=== PATIENT | female | born 1985 | race Caucasian/White ===

== ENCOUNTER 2017-07-06 10:55 | Inpatient (IN) | payer OTHER ==
[~2017-07-06] VITALS: Ht 165.1 cm; Wt 91.4 kg
[~2017-07-06 10:55] MED LIST: OXYC-302 PO
[2017-07-07] MEDS ORDERED: OXYTOCIN 30U/ 0.9% NaCL 500ML 500 ML IV ONE (19:25)
[2017-07-07] MEDS ORDERED: D5%-LACTATED RINGERS 1,000 ML IV SCH (19:25)
[2017-07-07] MEDS ORDERED: LACTATED RINGERS 1,000 ML IV SCH (19:25)
[2017-07-07] MEDS ORDERED: FENTANYL PF 100 MCG/2ML IVPush PRN (19:30)
[2017-07-07] MEDS ORDERED: FENTANYL PF 100 MCG/2ML IV PRN (19:30)
[2017-07-07 19:40] VITALS: BP 121/80
[2017-07-07] MEDS ORDERED: LIDOCAINE 1%, 20ML ONE (19:53)
[2017-07-07] MEDS ORDERED: OXYTOCIN 30U/ 0.9% NaCL 500ML 500 ML ONE (19:53)
[2017-07-07] MEDS ORDERED: MISOPROSTOL 200 MCG TABLET ONE (19:53)
[2017-07-07] MEDS ORDERED: MISOPROSTOL 25 MCG TABLET ONE (19:53)
[2017-07-07] MEDS ORDERED: NEWBORN KIT ONE (19:54)
[2017-07-07] MEDS ORDERED: PLEASE ENTER HEIGHT AND WEIGHT MC SCH ×2 (20:00→20:30)
[2017-07-07] MEDS ORDERED: MISOPROSTOL 25 MCG TABLET VG PRN (20:30)
[2017-07-07 20:33] LABS: HEMATOCRIT 40.8 % (34.6-47.8); HEMOGLOBIN 13.7 g/dL (11.7-16.4)
[2017-07-08] MEDS ORDERED: FENTANYL PF 100 MCG/2ML ONE ×2 (05:08→06:15)
[2017-07-08] MEDS ORDERED: ONDANSETRON 2MG/ML, 2ML ONE (05:08)
[2017-07-08] MEDS ORDERED: BUPIVACAINE 0.25% ONE (06:15)
[2017-07-08] MEDS ORDERED: FENTANYL/BUPIV./NS/PF 250 ML EPIDCONT ONE (06:15)
[2017-07-08] MEDS ORDERED: LIDOCAINE/PF 1.5%-EPI 1:200K, 30ML ONE (06:18)
[2017-07-08] MEDS ORDERED: FENTANYL/BUPIV./NS/PF 250 ML EPIDCONT SCH (06:49)
[2017-07-08] MEDS: LACTATED RINGERS 1,000 ML IV SCH ×3 (06:49→22:49)
[2017-07-08] MEDS ORDERED: ONDANSETRON 2MG/ML, 2ML IVPush PRN (07:00)
[2017-07-08] MEDS ORDERED: LACTATED RINGERS 1,000 ML IVBOLUS PRN (07:00)
[2017-07-08] MEDS ORDERED: EPHEDRINE 50 MG/ML, 1ML IVPush PRN (07:00)
[2017-07-08] MEDS: OXYTOCIN 30U/ 0.9% NaCL 500ML 500 ML IV SCH ×2 (09:39→19:39)
[2017-07-08] MEDS ORDERED: OXYTOCIN 30U/ 0.9% NaCL 500ML 500 ML ONE (09:42)
[2017-07-08] MEDS ORDERED: ACETAMINOPHEN 325 MG TABLET PO PRN (10:00)
[2017-07-08] MEDS ORDERED: CARBOPROST TROMETHAMINE 250 MCG/ML, 1ML IM PRN (10:00)
[2017-07-08] MEDS ORDERED: DIPH,PERTUSS(ACELL),TET VAC/PF NC IM-VACC PRN (10:00)
[2017-07-08] MEDS ORDERED: METHYLERGONOVINE 0.2 MG/ML IM PRN (10:00)
[2017-07-08] MEDS ORDERED: MISOPROSTOL 200 MCG TABLET PR PRN (10:00)
[2017-07-08] MEDS ORDERED: OXYcodone/APAP 5/325MG TABLET PO PRN (10:00)
[2017-07-08] MEDS ORDERED: MEASLES,MUMPS&RUBELLA VACC/PF 0.5 ML SQ PRN (10:00)
[2017-07-08 11:30] VITALS: BP 107/62
[2017-07-08] MEDS: IBUPROFEN 600 MG TABLET PO PRN ×2 (14:51→21:11)
[2017-07-08 15:39] VITALS: BP 109/65
[2017-07-08 17:33] LABS: HEMATOCRIT 40.2 % (34.6-47.8); HEMOGLOBIN 13.5 g/dL (11.7-16.4); WHITE BLOOD COUNT 14.2 x10^3/uL (3.4-10)
[2017-07-08 17:54] LABS: LARGE PLATELETS 1+
[2017-07-08 19:30] VITALS: BP 117/75
[2017-07-08] MEDS: DOCUSATE 100 MG CAPSULE PO PRN (21:11)
[2017-07-09] MEDS: OXYcodone/APAP 5/325MG TABLET PO PRN ×3 (00:26→14:20)
[2017-07-09 00:30] VITALS: BP 114/71
[2017-07-09 04:00] VITALS: BP 101/57
[2017-07-09] MEDS: OXYTOCIN 30U/ 0.9% NaCL 500ML 500 ML IV SCH (05:39)
[2017-07-09] MEDS: LACTATED RINGERS 1,000 ML IV SCH (06:49)
[2017-07-09] MEDS: IBUPROFEN 600 MG TABLET PO PRN ×2 (07:15→14:24)
[2017-07-09] MEDS: DOCUSATE 100 MG CAPSULE PO PRN (07:15)
[2017-07-09 08:00] VITALS: BP 100/58
[2017-07-09] MEDS ORDERED: PRENATAL VIT/IRON/FA 1 EACH TABLET PO SCH (09:00)
[2017-07-09] MEDS ORDERED: OXYC-302 PO (13:10)
[2017-07-09] MEDS ORDERED: IBUP-1222 PO (13:11)
== END 2017-07-09 14:55 | disposition home or self-care (01) | DRG 775 ==
LOC: LDIP 07-07 19:24 → 2NW 07-08 11:24
PROVIDERS: ADMIT Obstetrics & Gynecology Maternal & Fetal Medicine; ATTEND Obstetrics & Gynecology Maternal & Fetal Medicine
PROC: 10E0XZZ Delivery of Products of Conception, External Approach (ICD-10-PCS; principal; 2017-07-08)
PROC: 3E0P7VZ Introduction of Hormone into Female Reproductive, Via Natural or Artificial Opening (ICD-10-PCS; 2017-07-08)
PROC: 3E0S3BZ Introduction of Anesthetic Agent into Epidural Space, Percutaneous Approach (ICD-10-PCS; 2017-07-08)
PROC: 00HU33Z Insertion of Infusion Device into Spinal Canal, Percutaneous Approach (ICD-10-PCS; 2017-07-08)
DX: O80 Encounter for full-term uncomplicated delivery (principal); Z37.0 Single live birth; Z3A.40 40 weeks gestation of pregnancy
CPT/HCPCS: 36415; 85025; 86850; 86900; J3490; J2590; J7120

== ENCOUNTER 2020-03-20 10:35 | Inpatient (IN) | payer OTHER ==
[~2020-03-20] VITALS: Ht 165.1 cm; Wt 86.0 kg
[~2020-03-20 10:35] MED LIST changes: +IBUP-1222 PO
[2020-03-27] MEDS ORDERED: D5%-LACTATED RINGERS 1,000 ML IV SCH (21:47)
[2020-03-27] MEDS ORDERED: OXYTOCIN 30U/ 0.9% NaCL 500ML 500 ML IV ONE (21:47)
[2020-03-27] MEDS ORDERED: FENTANYL/BUPIV./NS/PF 250 ML EPIDCONT SCH (21:49)
[2020-03-27] MEDS ORDERED: OXYTOCIN 30U/ 0.9% NaCL 500ML 500 ML ONE (21:52)
[2020-03-27] MEDS ORDERED: MISOPROSTOL 200 MCG TABLET ONE (21:52)
[2020-03-27] MEDS ORDERED: LIDOCAINE 1%, 20ML ONE (21:52)
[2020-03-27] MEDS ORDERED: MISOPROSTOL 25 MCG TABLET ONE (21:53)
[2020-03-27] MEDS ORDERED: TERBUTALINE 1 MG/ML, 1ML SQ PRN (22:00)
[2020-03-27] MEDS ORDERED: CALCIUM CARBONATE 500 MG TAB.CHEW PO PRN (22:00)
[2020-03-27] MEDS ORDERED: TERBUTALINE 1 MG/ML, 1ML IVPush PRN (22:00)
[2020-03-27] MEDS ORDERED: ALUMINUM/MAG/SIMETHICONE 30 ML UDC PO PRN (22:00)
[2020-03-27] MEDS ORDERED: FENTANYL PF 100 MCG/2ML IV PRN (22:00)
[2020-03-27] MEDS ORDERED: ONDANSETRON 2MG/ML, 2ML IVPush PRN (22:00)
[2020-03-27] MEDS ORDERED: SODIUM CHLORIDE FLUSH 10ML SYR IVF PRN (22:00)
[2020-03-27] MEDS ORDERED: SODIUM CITRATE/CITRIC ACID 30 ML UDC PO PRN (22:00)
[2020-03-27] MEDS ORDERED: MISOPROSTOL 25 MCG TABLET VG PRN (22:00)
[2020-03-27] MEDS ORDERED: METOCLOPRAMIDE 5 MG/ML, 2ML IVPush PRN (22:00)
[2020-03-27] MEDS: LACTATED RINGERS 1,000 ML IV SCH (22:00)
[2020-03-27] MEDS ORDERED: FENTANYL PF 100 MCG/2ML IVPush PRN (22:00)
[2020-03-27 22:12] VITALS: BP 127/67
[2020-03-27 22:19] LABS: BASOPHILS # (AUTO) 0.05 x10^3/uL (0-0.1); BASOPHILS % (AUTO) 1 % (0-1); EOSINOPHILS # (AUTO) 0.08 x10^3/uL (0-0.4); EOSINOPHILS % (AUTO) 1 % (1-7); LYMPHOCYTES # (AUTO) 2.22 x10^3/uL (1-3.4); LYMPHOCYTES % (AUTO) 28 % (22-44); MD NO; MEAN CORPUSCULAR HGB CONC 32.6 g/dL (32.4-35.8); MEAN CORPUSCULAR VOLUME 98.3 fL (80-100); MEAN PLATELET VOLUME 10.8 fL (7.4-10.4); MONOCYTES # (AUTO) 0.76 x10^3/uL (0.2-0.8); MONOCYTES % (AUTO) 10 % (2-9); NEUTROPHILS # (AUTO) 4.74 x10^3/uL (1.8-6.8); NEUTROPHILS % (AUTO) 60 % (42-75); PLATELET COUNT 160 x10^3/uL (130-400); RED BLOOD COUNT 4.38 x10^6/uL (3.82-5.3); RED CELL DISTRIBUTION WIDTH 12.8 % (9.6-15.2)
[2020-03-28] MEDS ORDERED: FENTANYL/BUPIV./NS/PF 250 ML EPIDCONT ONE (00:24)
[2020-03-28] MEDS ORDERED: TERBUTALINE 1 MG/ML, 1ML ONE (00:38)
[2020-03-28] MEDS ORDERED: BUPIVACAINE 0.25% ONE (00:48)
[2020-03-28] MEDS: LACTATED RINGERS 1,000 ML IV SCH ×3 (01:00→05:32)
[2020-03-28] MEDS ORDERED: FENTANYL/BUPIV./NS/PF 250 ML EPIDCONT SCH (01:22)
[2020-03-28] MEDS ORDERED: EPHEDRINE 50 MG/ML, 1ML IVPush PRN (01:30)
[2020-03-28] MEDS ORDERED: NALOXONE 0.4 MG/ML, 1ML IVPush PRN (01:30)
[2020-03-28] MEDS ORDERED: DIPHENHYDRAMINE 50 MG/ML, 1ML IVPush PRN (01:30)
[2020-03-28] MEDS ORDERED: LACTATED RINGERS 1,000 ML IVBOLUS PRN (01:30)
[2020-03-28] MEDS ORDERED: ONDANSETRON 2MG/ML, 2ML IVPush PRN (01:30)
[2020-03-28] MEDS ORDERED: EPHEDRINE 50 MG/ML, 1ML ONE (01:33)
[2020-03-28] MEDS ORDERED: OXYTOCIN 30U/ 0.9% NaCL 500ML 500 ML IV PRN (02:56)
[2020-03-28] MEDS ORDERED: ONDANSETRON 2MG/ML, 2ML ONE (08:04)
[2020-03-28] MEDS: D5%-LACTATED RINGERS 1,000 ML IV SCH ×2 (08:15→16:15)
[2020-03-28] MEDS ORDERED: IBUPROFEN 600 MG TABLET ONE (10:44)
[2020-03-28] MEDS: IBUPROFEN 600 MG TABLET PO PRN ×2 (10:45→16:36)
[2020-03-28] MEDS ORDERED: MISOPROSTOL 200 MCG TABLET PR PRN (11:00)
[2020-03-28] MEDS ORDERED: OXYcodone/APAP 5/325MG TABLET PO PRN (11:00)
[2020-03-28] MEDS ORDERED: ACETAMINOPHEN 325 MG TABLET PO PRN ×2 (11:00)
[2020-03-28] MEDS ORDERED: ONDANSETRON 2MG/ML, 2ML IV PRN (11:00)
[2020-03-28] MEDS ORDERED: METHYLERGONOVINE 0.2 MG/ML IM PRN (11:00)
[2020-03-28] MEDS ORDERED: CARBOPROST TROMETHAMINE 250 MCG/ML, 1ML IM PRN (11:00)
[2020-03-28] MEDS ORDERED: DIPH,PERTUSS(ACELL),TET VAC/PF NC IM-VACC PRN (11:00)
[2020-03-28] MEDS ORDERED: SIMETHICONE 80 MG CHEW TAB PO PRN (11:00)
[2020-03-28] MEDS ORDERED: OXYTOCIN 30U/ 0.9% NaCL 500ML 500 ML ONE (12:01)
[2020-03-28] MEDS: OXYTOCIN 30U/ 0.9% NaCL 500ML 500 ML IV SCH ×2 (12:07→20:36)
[2020-03-28 12:35] VITALS: BP 97/51
[2020-03-28] MEDS: OXYcodone/APAP 5/325MG TABLET PO PRN ×3 (13:30→20:15)
[2020-03-28 16:30] VITALS: BP 109/63
[2020-03-28 18:39] LABS: BASOPHILS # (AUTO) 0.05 x10^3/uL (0-0.1); BASOPHILS % (AUTO) 0 % (0-1); EOSINOPHILS # (AUTO) 0.09 x10^3/uL (0-0.4); EOSINOPHILS % (AUTO) 1 % (1-7); LYMPHOCYTES # (AUTO) 2.24 x10^3/uL (1-3.4); LYMPHOCYTES % (AUTO) 18 % (22-44); MD NO; MEAN CORPUSCULAR HEMOGLOBIN 32.2 pg (27.0-34.8); MEAN CORPUSCULAR HGB CONC 33.3 g/dL (32.4-35.8); MEAN CORPUSCULAR VOLUME 96.7 fL (80-100); MEAN PLATELET VOLUME 10.8 fL (7.4-10.4); MONOCYTES % (AUTO) 9 % (2-9); NEUTROPHILS # (AUTO) 8.87 x10^3/uL (1.8-6.8); NEUTROPHILS % (AUTO) 72 % (42-75); PLATELET COUNT 135 x10^3/uL (130-400); RED BLOOD COUNT 3.75 x10^6/uL (3.82-5.3); RED CELL DISTRIBUTION WIDTH 13.3 % (9.6-15.2)
[2020-03-28 19:15] VITALS: BP 106/62
[2020-03-28] MEDS: DOCUSATE 100 MG CAPSULE PO PRN (20:15)
[2020-03-29] MEDS: D5%-LACTATED RINGERS 1,000 ML IV SCH ×2 (00:15→08:15)
[2020-03-29] MEDS: IBUPROFEN 600 MG TABLET PO PRN ×3 (00:35→14:08)
[2020-03-29 01:00] VITALS: BP 104/62
[2020-03-29] MEDS: OXYcodone/APAP 5/325MG TABLET PO PRN ×3 (02:44→14:09)
[2020-03-29 04:40] VITALS: BP 106/62
[2020-03-29] MEDS: OXYTOCIN 30U/ 0.9% NaCL 500ML 500 ML IV SCH (06:36)
[2020-03-29] MEDS: DOCUSATE 100 MG CAPSULE PO PRN (07:23)
[2020-03-29 07:35] VITALS: BP 99/57
[2020-03-29] MEDS ORDERED: PRENATAL VIT/IRON/FA 1 EACH TABLET PO SCH (09:00)
[2020-03-29] MEDS ORDERED: PNV11TAB PO (10:51)
== END 2020-03-29 15:50 | disposition home or self-care (01) | DRG 807 ==
LOC: LDIP 03-27 21:43 → 2NW 03-28 12:30
PROVIDERS: ADMIT Obstetrics & Gynecology Maternal & Fetal Medicine; ATTEND Obstetrics & Gynecology Maternal & Fetal Medicine
PROC: 10E0XZZ Delivery of Products of Conception, External Approach (ICD-10-PCS; principal; 2020-03-28)
PROC: 3E0P7VZ Introduction of Hormone into Female Reproductive, Via Natural or Artificial Opening (ICD-10-PCS; 2020-03-28)
PROC: 3E0R3BZ Introduction of Anesthetic Agent into Spinal Canal, Percutaneous Approach (ICD-10-PCS; 2020-03-28)
PROC: 00HU33Z Insertion of Infusion Device into Spinal Canal, Percutaneous Approach (ICD-10-PCS; 2020-03-28)
DX: O48.0 Post-term pregnancy (principal); Z37.0 Single live birth; O99.89 Other specified diseases and conditions complicating pregnancy, childbirth and the puerperium; R00.1 Bradycardia, unspecified; O77.0 Labor and delivery complicated by meconium in amniotic fluid; Z20.828 Contact with and (suspected) exposure to other viral communicable diseases; Z3A.41 41 weeks gestation of pregnancy
CPT/HCPCS: 36415; 85025; 86592; 86850; 86900; 87635; G0378; J2405; J2590; J7120